=== PATIENT | female | born 1990 | race Caucasian/White ===

== ENCOUNTER 2019-04-10 07:54 | Outpatient (CLI) | payer OTHER, SELFPAY ==
[2019-04-10 08:56] LABS: Eosinophils Percent Auto 0.6 % (0-4.4); Hematocrit 35.6 % (37.0-47.0); Immature Granulocyte Absolute 0.01 K/mm3 (0.00-0.031); Immature Granulocyte Percent A 0.1 % (0-0.5); Lymphocytes Absolute Auto 1.06 K/mm3 (0.9-3.2); Lymphocytes Percent Auto 14.8 % (18.3-44.2); Mean Corpuscular HGB Conc 33.7 g/dl (32-36); Mean Corpuscular Hemoglobin 29.7 pg (26-34); Mean Corpuscular Volume 88.1 fl (80-100); Mean Platelet Volume 10.7 fl (7.4-10.4); Monocytes Absolute Auto 0.4 K/mm3 (0.1-0.6); Neutrophils Absolute Auto 5.7 K/mm3 (1.3-6.7); Neutrophils Percent Auto 79.5 % (45.5-73.1); Platelet Count Result 236 k/mm3 (150-375); Red Blood Count 4.04 M/mm3 (4.2-5.4); Red Cell Distribution Width 13.1 % (11.5-14.5); White Blood Count 7.2 K/mm3 (4.5-10.0)
[2019-04-10 08:59] LABS: Add Urine Microscopic? YES; Appearance Urine Cloudy (Clear); Bacteria Urine Trace /hpf; Bilirubin Urine Negative (Negative); Blood Urine Negative (Negative); Budding Yeast Urine Present /hpf; Color Urine Yellow (Yellow); Glucose Urine UA Negative (Negative); Ketones Urine Negative (Negative); Leukocyte Esterase Ur Negative LEU/UL (NEGATIVE); Mucus Urine Rare /lpf; Nitrate Urine Negative (Negative); Protein Urine Negative (Negative); RBC Urine 0-2 /hpf (0-2); Specific Grav Ur 1.012 (1.001-1.035); Squamous Epithelial Cell Urine Occasional /hpf (Few); Urobilinogen Urine Negative mg/dL (<2.0)
[2019-04-10 09:38] LABS: Vitamin D 25 Hydroxy 44.8 ng/mL
[2019-04-10 09:44] LABS: Thyroid Stimulating Hormone 0.578 uIU/mL (0.465-4.680)
[2019-04-10 12:45] LABS: Hepatitis B Surface Antigen Negative (Negative); Rubella IgG Antibody 11.6 IU/ML
[2019-04-10 12:56] LABS: HIV 1/2 Ab P24 Ag Result Negative (Negative); Hepatitis C Virus Antibody Negative (Negative)
[2019-04-11 10:55] LABS: Rapid Plasma Reagin Non-Reactive (NonReactive)
[2019-04-17 12:03] LABS: Hemoglobin 12.2 g/dL (11.7-15.5); MCH 30.9 pg (27.0-33.0); MCV 91.2 FL (80.0-100.0); RDW 14.3 % (11.0-15.0); Red Blood Cell Count 3.95 Mill/uL (3.80-5.10)
== END 2019-04-10 07:55 | disposition home or self-care (01) ==
PROVIDERS: PCP Internal Medicine; Visit Provider Student in an Organized Health Care Education/Training Program
DX: Z34.90 Encounter for supervision of normal pregnancy, unspecified, unspecified trimester (principal); Z3A.00 Weeks of gestation of pregnancy not specified
CPT/HCPCS: 36415; 81001; 82306; 83021; 84443; 85025; 86592; 86703; 86762; 86787; 86803; 86900; 86901; 87086; 87340; G0432

== ENCOUNTER 2019-07-12 07:20 | Outpatient (CLI) | payer OTHER, SELFPAY ==
[2019-07-12 08:36] LABS: Basophils Percent Auto 0.2 % (0.2-1.2); Eosinophils Absolute Auto 0.1 K/mm3 (0-0.3); Eosinophils Percent Auto 0.8 % (0-4.4); Hematocrit 34.9 % (37.0-47.0); Hemoglobin 11.6 g/dL (12.0-15.0); Immature Granulocyte Absolute 0.03 K/mm3 (0.00-0.031); Immature Granulocyte Percent A 0.5 % (0-0.5); Lymphocytes Absolute Auto 1.06 K/mm3 (0.9-3.2); Lymphocytes Percent Auto 16.1 % (18.3-44.2); Mean Corpuscular HGB Conc 33.2 g/dl (32-36); Mean Corpuscular Hemoglobin 30.9 pg (26-34); Mean Corpuscular Volume 93.1 fl (80-100); Mean Platelet Volume 10.6 fl (7.4-10.4); Monocytes Absolute Auto 0.4 K/mm3 (0.1-0.6); Monocytes Percent Auto 6.1 % (2.6-8.5); Neutrophils Absolute Auto 5.1 K/mm3 (1.3-6.7); Neutrophils Percent Auto 76.3 % (45.5-73.1); Platelet Count Result 175 k/mm3 (150-375); Red Blood Count 3.75 M/mm3 (4.2-5.4); White Blood Count 6.6 K/mm3 (4.5-10.0)
[2019-07-12 08:51] LABS: Glucose 1 Hour PP 50gm Dose 125 mg/dL
== END 2019-07-12 07:21 | disposition home or self-care (01) ==
PROVIDERS: PCP Internal Medicine; Visit Provider Student in an Organized Health Care Education/Training Program
DX: Z34.82 Encounter for supervision of other normal pregnancy, second trimester (principal)
CPT/HCPCS: 36415; 82947; 85025

== ENCOUNTER 2019-09-12 15:40 | Outpatient (CLI) | payer OTHER, SELFPAY ==
[2019-09-12 15:59] LABS: Basophils Percent Auto 0.1 % (0.2-1.2); Eosinophils Percent Auto 0.5 % (0-4.4); Hematocrit 37.1 % (37.0-47.0); Hemoglobin 12.8 g/dL (12.0-15.0); Immature Granulocyte Absolute 0.02 K/mm3 (0.00-0.031); Immature Granulocyte Percent A 0.2 % (0-0.5); Lymphocytes Absolute Auto 1.49 K/mm3 (0.9-3.2); Lymphocytes Percent Auto 18.3 % (18.3-44.2); Mean Corpuscular HGB Conc 34.5 g/dl (32-36); Mean Corpuscular Hemoglobin 31.4 pg (26-34); Mean Corpuscular Volume 90.9 fl (80-100); Monocytes Absolute Auto 0.6 K/mm3 (0.1-0.6); Monocytes Percent Auto 7.5 % (2.6-8.5); Neutrophils Percent Auto 73.4 % (45.5-73.1); Platelet Count Result 144 k/mm3 (150-375); Red Blood Count 4.08 M/mm3 (4.2-5.4); Red Cell Distribution Width 13.7 % (11.5-14.5); White Blood Count 8.2 K/mm3 (4.5-10.0)
[2019-09-12 16:53] LABS: HIV 1/2 Ab P24 Ag Result Negative (Negative)
[2019-09-13 10:21] LABS: Rapid Plasma Reagin Non-Reactive (NonReactive)
== END 2019-09-12 15:41 | disposition home or self-care (01) ==
PROVIDERS: PCP Internal Medicine; Visit Provider Student in an Organized Health Care Education/Training Program
DX: Z34.90 Encounter for supervision of normal pregnancy, unspecified, unspecified trimester (principal); Z3A.00 Weeks of gestation of pregnancy not specified
CPT/HCPCS: 36415; 85025; 86592; 86703; G0432

== ENCOUNTER 2019-09-25 16:37 | Outpatient (CLI) | payer OTHER, SELFPAY | END 2019-09-25 16:38 | disposition home or self-care (01) | PROVIDERS: PCP Internal Medicine; Visit Provider Student in an Organized Health Care Education/Training Program | DX: Z34.90 Encounter for supervision of normal pregnancy, unspecified, unspecified trimester (principal); Z3A.00 Weeks of gestation of pregnancy not specified | CPT/HCPCS: 36415; 86850 ==

== ENCOUNTER 2019-10-04 10:29 | Outpatient (RCR) | payer OTHER, SELFPAY ==
[2019-07-12 10:12] VITALS: BP 105/64; PULSE 89
--- NOTE | ~2019-10-04 | US_ITS ---
EXAMINATION: US OB limited w BPP DATE: 10/04/2019 11:21 INDICATION: Term . TECHNIQUE: Real-time pelvic ultrasound was performed. COMPARISON: Ultrasound 02/19/2019 FINDINGS: There is a single living fetus in vertex presentation. The placenta is anterior and fundal. he art rate is 136 beats per minute (bpm). The amniotic fluid index is 14.5 cm, which is normal. Biophysical profile performed by the technologist: breathing (30 sec sustained breathing in 30 minutes): 2 out of 2 movement (3 gross body movements in 30 minutes): 2 out of 2 tone (one episode of ssofqbf-zmlpvzwub-arfhagu limb movement): 2 out of 2 Amniotic fluid pocket (2 cm): 2 out of 2 Total score: 8 out of 8 IMPRESSION: 1. Single living fetus in vertex presentation. 2. Biophysical profile 8 out of 8. Reviewed, dictated and finalized at location B.
[2019-10-04 12:04] VITALS: BP 115/79; PULSE 86
== END 2019-10-08 08:13 | disposition home or self-care (01) ==
LOC: ANHOBOP 10:29
PROVIDERS: PCP Internal Medicine; Visit Provider Student in an Organized Health Care Education/Training Program
DX: Z34.92 Encounter for supervision of normal pregnancy, unspecified, second trimester (principal); Z3A.28 28 weeks gestation of pregnancy; Z3A.40 40 weeks gestation of pregnancy
CPT/HCPCS: 59025; 76815; 76819

== ENCOUNTER 2019-10-06 20:21 | Inpatient (IN) | payer OTHER, SELFPAY ==
[2019-10-06 20:32] VITALS: TEMP 36.6
[2019-10-06 20:54] VITALS: BP 124/78; PULSE 77
[2019-10-06 21:00] VITALS: BMI 30.4
[2019-10-06] MEDS: AMPICILLIN 2 GM/NS 100 ML 2 GM/100 ML BAG IVPB (21:14)
[2019-10-06] MEDS: OXYTOCIN 30 UNITS/NS 500 ML 30 UNITS/500 ML BAG IV CONT (21:14)
[2019-10-06] MEDS: LACTATED RINGERS 1,000 ML 125 ML IV CONT (21:14)
[2019-10-06 21:26] LABS: Eosinophils Absolute Auto 0.1 K/mm3 (0-0.3); Eosinophils Percent Auto 0.7 % (0-4.4); Hematocrit 37.1 % (37.0-47.0); Hemoglobin 12.8 g/dL (12.0-15.0); Immature Granulocyte Absolute 0.02 K/mm3 (0.00-0.031); Immature Granulocyte Percent A 0.2 % (0-0.5); Lymphocytes Absolute Auto 1.82 K/mm3 (0.9-3.2); Lymphocytes Percent Auto 20.1 % (18.3-44.2); Mean Corpuscular HGB Conc 34.5 g/dl (32-36); Mean Corpuscular Hemoglobin 31.2 pg (26-34); Mean Corpuscular Volume 90.5 fl (80-100); Mean Platelet Volume 12.3 fl (7.4-10.4); Monocytes Absolute Auto 0.7 K/mm3 (0.1-0.6); Neutrophils Absolute Auto 6.4 K/mm3 (1.3-6.7); Platelet Count Result 153 k/mm3 (150-375); Red Cell Distribution Width 13.7 % (11.5-14.5)
--- NOTE | 2019-10-06 21:28 | LDADM ---
This patient, Nae Szymanski, was admitted to Labor/Delivery/Recovery 104 on 10/06/19 at 20:21. Plans for labor, pain management and were discussed with patient. Patient/family oriented to hospital policies and general routines including ID bracelet, bed and alarms, visiting hours, pain management, procedures, bathroom and other care routines, personal items, smoking policy, room service/diet and guest tray routines, infant security routines, and visiting hours. Patient/Family are encouraged to report perceived risks to care and to ask questions if they do not understand what they are told or what they should do. See OBIX for further documentation.
[2019-10-06 21:31] VITALS: BP 119/69; PULSE 78
[2019-10-06 22:01] VITALS: BP 114/65; PULSE 81
[2019-10-06 22:31] VITALS: BP 122/68; PULSE 68
[2019-10-07] VITALS (140 sets, daily range): BP systolic 74–152; BP diastolic 35–122; PULSE 61–202; RESP 16; TEMP 36.2–37.4; O2SAT 95–100
[2019-10-07] MEDS: AMPICILLIN 1 GM/NS 50 ML 1 GM/50 ML BAG IVPB ×3 (01:15→09:30)
--- NOTE | 2019-10-07 07:13 | WPDANESEPP ---
Anes - Eval Pre Procedure Procedure: labor epidural Date/Time: 10/07/19 07:13 Surgeon: amisha Pre Op Diagnosis: Leaking Patient Data Age: 29 Gender: F Height: 1.65 m Weight: 83 kg Last Vital Signs Temp 36.6 C 10/07/19 06:00 Pulse 61 10/07/19 04:31 BP 117/71 10/07/19 04:31 Allergies Allergy/AdvReac Type Severity Reaction Status Date / Time No Known Allergies Allergy Unknown Verified 10/02/19 10:11 Home Medications Medication Instructions Recorded Confirmed Type cetirizine 10 mg capsule 10 mg PO DAILY 02/15/19 10/06/19 History [id number]-jbvq carb,eiz-UV-uff-dha 1 pkg PO DAILY 10/04/19 10/06/19 History Laboratory Tests 10/06/19 10/06/19 10/06/19 21:04 21:04 21:04 WBC 9.0 K/mm3 K/mm3 (4.5-10.0) RBC 4.10 M/mm3 L M/mm3 (4.2-5.4) Hgb 12.8 g/dL g/dL (12.0-15.0) Hct 37.1 % % (37.0-47.0) MCV 90.5 fl fl (80-100) MCH 31.2 pg pg (26-34) MCHC 34.5 g/dl g/dl (32-36) RDW 13.7 % % (11.5-14.5) Plt Count 153 k/mm3 k/mm3 (150-375) MPV 12.3 fl H fl (7.4-10.4) Immature Gran % (Auto) 0.2 % % (0-0.5) Neut % (Auto) 71.0 % % (45.5-73.1) Lymph % (Auto) 20.1 % % (18.3-44.2) [place] % (Auto) 8.0 % % (2.6-8.5) Eos % (Auto) 0.7 % % (0-4.4) Baso % (Auto) 0.0 % L % (0.2-1.2) Lymph # (Auto) 1.82 K/mm3 K/mm3 (0.9-3.2) [place] # (Auto) 0.7 K/mm3 H K/mm3 (0.1-0.6) Eos # (Auto) 0.1 K/mm3 K/mm3 (0-0.3) Baso # (Auto) 0.0 K/mm3 K/mm3 (0.0-0.1) Abs Immat Gran (auto) 0.02 K/mm3 K/mm3 (0.00-0.031) Absolute Neuts (auto) 6.4 K/mm3 K/mm3 (1.3-6.7) Absolute Nucleated RBC 0.0 K/mm3 K/mm3 (0.0-0.012) Nucleated RBC % 0.0 % % (0.0-0.2) RPR Pending Blood Type B Positive Antibody Screen Negative Patient hx anesthesia problems: none Family hx anesthesia problems: none PMFSH Social History Social History Smoking status: Never smoker Second hand tobacco smoke exposure: No Alcohol intake: never Substance use: never Spiritual care concerns: No Exam Day of Procedure 10/07/19 07:13
[2019-10-07] MEDS: LACTATED RINGERS 1,000 ML 125 ML IV CONT ×3 (07:17→09:13)
--- NOTE | 2019-10-07 08:14 | PM.IMHP ---
H&P: HPI History of Present Illness Date/Time: 10/07/19 08:14 Chief complaint: Leaking Narrative: Nae Szymanski is a 29 year old female LMP 12/28/18 with ARLYN 10/04/19. Patient is currently 40w3d gestation. She is dated by LMP consistent with US on 02/19/19 at 7w gestation. Patient presented to L&D with complaints of leakage of fluid. Reports trickling of fluid at 1:00 a.m. yesterday morning. Reports occ ctx. Denies any vaginal bleeding. Reports good movement. Review of Systems Review of Systems: All systems reviewed & are unremarkable except as noted in HPI and below Constitutional: Constitutional: Reports as per HPI, Reports no additional constitutional complaints, Denies chills, Denies fever(s), Denies headache(s) and Denies night sweats Eyes: Eyes: Reports as per HPI and Reports no additional eye complaints ENT: Reports system reviewed and no additional complaints, except as documented, Reports as per HPI, Reports Normal hearing present and Denies headache(s) Cardiovascular: Cardiovascular: Reports as per HPI, Reports no additional cardiovascular complaints, Denies chest pain and Denies dyspnea Respiratory: Respiratory: Reports as per HPI, Reports no additional respiratory complaints, Denies cough and Denies dyspnea Gastrointestinal: Gastrointestinal: Reports as per HPI, Reports no additional gastrointestinal complaints, Denies abdominal pain, Denies change in bowel habits, Denies change in stool character, Denies nausea and Denies vomiting Genitourinary: Genitourinary: Reports no additional female genitourinary complaints, Reports as per HPI, Denies abnormal vaginal bleeding, Denies genital lesions, Denies hot flashes, Denies dyspareunia, Denies pelvic pain, Denies sexual dysfunction, Denies urinary incontinence, Denies vaginal discharge, Denies vaginal dryness and Denies vaginal odor Musculoskeletal: Musculoskeletal: Reports no additional musculoskeletal complaints and Reports as per HPI Integumentary/Breasts: Skin/Breast: Reports system reviewed and no additional complaints, except as docu, Reports as per HPI, Denies breast pain and Denies nipple discharge Neurologic: Reports system reviewed and no additional complaints, except as documented, Reports as per HPI, Reports Normal hearing present and Denies headache(s) Psychiatric: Psychiatric: Reports no additional psychiatric complaints, Reports as per HPI, Denies anxiety and Denies depression Endocrine: Endocrine: Reports no additional endocrine complaints and Reports as per HPI Hematologic/Lymphatic: Hematologic/Lymphatic: Reports no additional hematologic/lymphatic complaints and Reports as per HPI Allergic/Immunologic: Allergic/Immunologic: Reports no additional allergic/immunologic complaints and Reports as per HPI [facility] Past Medical History Medical History Spontaneous X2 03/2016, 12/09/2015 Vaginal delivery 02/20/2017 Surgical History Surgical History H/O dilation and curettage 03/2016 Family History Family History Grandparent Hypertension Cerebrovascular accident Family history of lung cancer, Onset Age: 56 Family history of malignant neoplasm of breast High cholesterol Lung cancer Father Hypertension Family history of type 2 diabetes mellitus Mother Hypertension High cholesterol Social History Social History Smoking status: Never smoker Second hand tobacco smoke exposure: No Alcohol intake: never Substance use: never Spiritual care concerns: No Meds Home Medications and Allergies Home Medications Medication Instructions Recorded Confirmed Type cetirizine 10 mg capsule 10 mg PO DAILY 02/15/19 10/06/19 History [id number]-vjgh carb,hss-FU-vfw-dha 1 pkg PO DAILY 10/04/19 10/06/19 History Allerg
[2019-10-07] MEDS: ONDANSETRON INJ 4 MG/2 ML VIAL IV PUSH (09:13)
[2019-10-07] MEDS: miSOPROStol 200 MCG TABLET 1000 MCG (11:59)
[2019-10-07] MEDS: METHYLERGONOVINE MALEATE 0.2 MG/ML VIAL IM (12:04)
[2019-10-07] MEDS: OXYTOCIN 30 UNITS/NS 500 ML 30 UNITS/500 ML BAG 999 UNITS IV CONT (12:14)
[2019-10-07] MEDS: TRANEXAMIC ACID 1,000 MG/10 ML AMPUL 1000 MG IV PUSH (12:15)
--- NOTE | 2019-10-07 12:29 | PM.OBPRVD ---
OB - Delivery Note Procedure Delivery date: 10/07/19 Procedure: Patient is a 29-year-old G4 now P2022 who presented to labor and delivery on the evening of 10/06/2019 at 40w2d. Patient reported leakage of fluid at approximately 1:00 a.m. on 10/06/2019. Rupture of membranes was confirmed upon arrival to labor and delivery. Therefore, she was suspected to be greater than 18 hours ruptured on presentation. Decision was made to admit patient to labor and delivery for induction of labor secondary to PROM. Initial cervical exam was approximately 1.5 cm dilated. Induction of labor was begun with Pitocin. Patient also received Ampicillin for GBS prophylaxis due to prolonged rupture of membranes. Pitocin was titrated throughout the remainder of the evening and morning of 10/07/2019. The patient became increasingly uncomfortable and requested an epidural for pain management which was placed without difficulty. At 8:15 a.m., patient was examined and noted to be 4 cm dilated. A forebag was noted and ruptured. Clear fluid was noted. Pitocin was continuously titrated. Patient, however, made slow progress and contractions spaced out. An IUPC was placed for enhanced monitoring. Shortly afterwards, patient made quick cervical change to fully dilated. She was noted to be fully dilated at 11:21 a.m. Patient was encouraged to push and found to be pushing well. She was prepped and draped for delivery. At 11:51 a.m., head was delivered atraumatically without difficulty in PHAM presentation. Occiput restituted to maternal left side. A nuchal cord x1 was noted and easily reduced. With subsequent push, the infant's neck, shoulders, and rest of body were delivered without difficulty. Terminal meconium was noted. Nose and mouth were suctioned with bulb suction. The infant was placed on maternal abdomen and care was assumed by awaiting nursing staff. Delayed cord clamping was performed for approximately 60 seconds. The cord was clamped and cut. A segment of cord was collected for cord gases. Cord blood was also collected. The placenta was delivered spontaneously and intact. Uterine fundus was noted to be boggy. Vigorous bimanual massage was performed, however, profuse bleeding ensued. A red rubber catheter was used to drain the bladder of approximately 20 cc of clear urine. Inspection of cervix and vagina was performed. No lacerations were noted. Only a superficial posterior vaginal abrasion was noted, however, this area was not bleeding and did not require repair. Cytotec 1000 mcg was administered OR. Uterus was still noted to be boggy. Uterine massage continued. Methergine 0.2 mg x1 dose was given. Uterine atony was persistent. Tranexamic acid 1g was ordered and administered slowly over 10 minutes. During administration of tranexamic acid, uterus became firm and bleeding subsided. Patient was cleansed and dried. Estimated blood loss for entire delivery was 1000 cc due to hemorrhage secondary to uterine atony. The was a live-born female infant, Apgars 8 and 9, weighing 8 lb 3 oz. Both mother and baby doing well after delivery. events: Labor Induction and Premature Rupture of Membrane Intrapartal events: Bleeding ( hemorrhage) Induction method: per pitocin protocol Delivery monitor: external FHT, external uterine and internal uterine Route of delivery: Laceration description: Superficial (posterior vaginal ) Specimen: Yes (cord blood and cord gases) Estimated blood loss (mL): 1,000 Anesthesia type: Epidural Disposition: floor Complications: hemorrhage due to uterine atony [place] Baby Date of : 10/07/19 Time of : 11:51 Weeks of gestation at delivery: 40 (40.3) Infant gender: Female Weight (pounds): 8 Weight (ounces): 3 presentation: vertex position: Left Occiput Anterior Placenta delivery description: Spontaneous cord vessel description: 3 Vessels, Nuchal Cord (x1) and Clamped/Cut score one minute: 8
[2019-10-07] MEDS: OXYTOCIN 30 UNITS/NS 500 ML 30 UNITS/500 ML BAG 125 UNITS IV CONT (12:45)
--- NOTE | 2019-10-07 15:36 | OBPPTRN ---
1454 Patient transferred to room #283 via W/C. Support person present. Oriented to unit, room, information board, rooming in, admission packet and security measures. Patient verbalizes understanding.
[2019-10-07] MEDS: IBUPROFEN 600 MG TABLET PO (19:11)
[2019-10-08] MEDS: IBUPROFEN 600 MG TABLET PO (05:07)
[2019-10-08] MEDS: DOCUSATE SODIUM 100 MG CAPSULE PO (05:08)
[2019-10-08 05:10] LABS: Hematocrit 31.2 % (37.0-47.0); Hemoglobin 10.6 g/dL (12.0-15.0)
--- NOTE | 2019-10-08 07:24 | WPDANLDNPN2 ---
Anes-Prog Note L&D-Neuraxial Date/Time: 10/08/19 07:24 Neuraxial medications: epidural PF morphine Opiod-related complaints: none Patient feedback: Patient satisfied with post-operative pain management.
--- NOTE | 2019-10-08 07:24 | WPDANLDPN2 ---
Anes-Prog Note L&D Date/Time: 10/08/19 07:24 Comfortable throughout: labor, delivery and section Neuraxial method: epidural Epidural/Spinal procedure site: clean & non-tender Neuro status: Neuro function grossly intact. Cardiovascular status: normal Respiratory status: normal Airway patency: baseline Mental status: baseline Post-Op hydration status: normal Vital Signs: Last Vital Signs Temp 37.4 C 10/07/19 20:00 Pulse 73 10/07/19 20:00 Resp 16 10/07/19 20:00 BP 106/57 L 10/07/19 20:00 Pulse Ox 96 10/07/19 20:00 I/O: Intake & Output 10/07/19 10/07/19 10/08/19 15:59 23:59 07:59 Intake Total 4050 Output Total 88 Balance 3962 Post-procedural complaints: other (mild back tenderness-improving ) Patient feedback: Patient satisfied with anesthetic care.
[2019-10-08 08:00] VITALS: BP 114/75; PULSE 75; RESP 16; TEMP 36.4; O2SAT 95
[2019-10-08] MEDS: MULTIVIT/MIN/PREN/FOL AC/IRON TABLET 1 TAB PO (08:28)
--- NOTE | 2019-10-08 10:51 | P.PNOB_ITS ---
OB - PN: Subj Subjective Date/time seen: 10/08/19 10:51 Pt doing well this AM. Denies any headache, chest pain, SOB, N/V. Minimal lochia. Ambulating without difficulty. Voiding well. Still with mild-moderate edema. Baby well. OB - PN: Obj Data Labs CBC & Chem 7: 10/08/19 05:02 Labs: Laboratory Results - last 24 hr 10/08/19 05:02 Hgb 10.6 L Hct 31.2 L OB - PN A/P Assessment and Plan (1) Normal spontaneous vaginal delivery: Code(s): O80 - Encounter for full-term uncomplicated delivery Status: Acute Assessment and Plan: doing well continue routine care anticipate dc home tomorrow (2) hemorrhage: Code(s): O72.1 - Other immediate hemorrhage Status: Acute Assessment and Plan: s/p PPH EBL 1000cc pt doing well asymptomatic vital signs within normal limits Hgb 10.6 this AM Time Spent With Patient Time: Total time spent is greater than 50% in coordination of care (as documented) at patient's floor/unit and/or counseling patient: Exam Const: General: comfortable and no acute distress GI: GI Palp: Yes Soft to palpation and No Tenderness to palpation present (GI) Other: fundus firm below umbilicus Extrem: Right lower extremity: edema (1-2+) Left lower extremity: edema (1- 2+)
[2019-10-08 11:33] LABS: Rapid Plasma Reagin Non-Reactive (NonReactive)
--- NOTE | 2019-10-08 12:30 | PC.NURSE ---
Mother called out for assessment of feeding, reporting tenderness during entire feeding. Mother has infant latched shallow in cradle positioning. Reviewed feeding cues, frequencies, duration of feedings, feeding elimination flow sheet, and signs of adequate intake. Demonstrated stimulation techniques to wake for feeding. Assisted with infant to breast. Reviewed positioning/alignment in cross cradle, holding breast in U hold and guided asymmetrical latch on. Discussed rational for each. was able to latch correctly. Infant nursed eagerly, with steady draws and frequent swallowing noted. Reviewed signs of a correct latch, effective nursing and suck swallow ratio. Mother reported she could feel was latched more deeply and had no discomfort. Infant was able to maintain latch without discomfort to mother. Nipple care reviewed. Instructed mother to call out for RN assistance if she is unable to latch infant for feeding or she has discomfort with nursing. Instructed feeding should be initiated three hours from start of last feeding or if feeding cues are noted before. Mother voiced understanding of information shared.
[2019-10-08 21:10] VITALS: BP 117/55; PULSE 72; RESP 16; TEMP 36.7; O2SAT 97
[2019-10-08] MEDS: ACETAMINOPHEN 325 MG TABLET 650 MG PO (21:14)
--- NOTE | 2019-10-09 08:00 | PM.OBPNVD ---
OB - PN: Subj Subjective Date/time seen: 10/09/19 08:00 Pt doing well. Minimal lochia. Denies any headache, chest pain, SOB, N/V. Ambulating well. Voiding without difficulty. OB - PN: Obj Data Labs CBC & Chem 7: 10/08/19 05:02 Labs: Laboratory Results - last 24 hr 10/06/19 21:04 RPR Non-reactive OB - PN A/P Assessment and Plan (1) Normal spontaneous vaginal delivery: Code(s): O80 - Encounter for full-term uncomplicated delivery Status: Acute Assessment and Plan: doing well continue routine care discharge home in stable condition today f/u in 4-6 weeks emergency precautions reviewed Time Spent With Patient Time: Total time spent is greater than 50% in coordination of care (as documented) at patient's floor/unit and/or counseling patient: Exam Const: General: comfortable and no acute distress GI: GI Palp: Yes Soft to palpation and No Tenderness to palpation present (GI) Other: fundus below umbilicus Extrem: Right lower extremity: edema (trace) Left lower extremity: edema (trace) Other: no calf tenderness
--- NOTE | 2019-10-09 08:04 | PM.OBDSVD ---
DS: Admitting Diagnosis Admitting Diagnosis Admitting Diagnosis: PROM OB - DS: Summary OB Procedures : None OB Procedures Intrapartum: Spontaneous Vag Delivery OB Procedures: : None Time Spent with Patient Time attestation: Total time spent providing and/or coordinating discharge services: DS: Data Data Completed and Pending Labs on day of discharge: Labs from last 24 hours 10/06/19 21:04 RPR Non-reactive Discharge Plan Discharge Attending physician on discharge: Miranda Prince Discharging Clinician: Miranda Prince Anticipated Discharge Date/Time: 10/09/19 08:04 Patient Disposition: Home, Self-Care Activity: as tolerated and pelvic rest Diet: regular Discharge Instructions: Call office ([phone]) to schedule a visit in 4-6 weeks. You may take Ibuprofen 600mg every 6 hours as needed for pain. Pain medication may make you constipated. It may be helpful to take an kdbx-xmt-lrzsnvk stool softener, such as Colace and/or Senokot, along with the pain medication to help lessen constipation. Call office or go to ED for pain not controlled with medication, headache, chest pain, shortness of breath, fever, chills, persistent nausea or vomiting, severe abdominal pain, heavy vaginal bleeding >2 pads/hour, foul vaginal discharge or odor, or problems with your breasts. Education: Mom and Baby Guide Given to: Mother Follow-Up: Call your delivering provider's office for an appointment to be seen in: 4 Weeks Mom and baby should come to the [facility] for the follow-up appointment. Appointment Date/Time: October 10, 2019 at 10:00 am What to expect at your follow-up visit: Physical Assessment Call [phone] if you are unable to keep your appointment time. BREAST CARE: * Wear a snug supportive bra. * For engorgement discomfort: Breast Feeding: * Apply warm moist washcloths * Express milk as needed to relieve engorgement * Wear loose clothing * For sore nipples: * Identify correct latch-on * Apply warm moist washcloths before and after nursing * Air dry nipples after nursing * May apply Lansinoh cream to nipples EPISIOTOMY/PERINEAL CARE: * Until bleeding stops, use your belia bottle after urinating * Change your pad frequently throughout the day * No tub baths until seen by your physician - You may shower ACTIVITY: * Rest as much as possible. * Do not exercise or lift anything heavier than your baby (such as laundry or other children.) * Avoid stairs or driving as much as possible. * Do not put anything into the vagina. No douching, tampons, or sexual activity until seen by physician. NOTIFY PHYSICIAN IF YOU HAVE ANY QUESTIONS OR IF ANY OF THE FOLLOWING SYMPTOMS OCCUR: * If your perineum becomes red, swollen, or more painful than what you have experienced in the hospital. * If your vaginal bleeding becomes foul smelling. * If your vaginal bleeding becomes more heavy than a period or if your bleeding changes from pink to bright red. However, you may pass an occasional walnut-sized clot once or twice for the first week . * If you experience a sharp, shooting pain in you calves. * If you discover a hard, reddened area on your breast or if you experience flu-like symptoms. DIET: * Eat regular, well-balanced meals. * Drink plenty of fluids daily. If , drink to thirst. Stand Alone Forms: General Discharge Information Follow-up/Referrals: Miranda Prince MD [Physician] - Discharge Medications: Continued Zyrtec 10 mg capsule 10 mg PO DAILY RF: 0 [id number]-uidh carb,ktf-SY-lyt-dha 35 mg iron-1 mg -50 mg-300 mg combo pack 1 pkg PO DAILY RF: 0 Date of admission: 10/06/19 20:21 Primary Care Provider: Mele Dsouza Admitting Provider: Miranda Prince Discharge Date/Time: 10/09/19 13:08 Attending physician o
[2019-10-09 08:15] VITALS: BP 113/65; PULSE 71; RESP 18; TEMP 37.2; O2SAT 97
[2019-10-09] MEDS: DOCUSATE SODIUM 100 MG CAPSULE PO (08:20)
[2019-10-09] MEDS: MULTIVIT/MIN/PREN/FOL AC/IRON TABLET 1 TAB PO (08:21)
--- NOTE | 2019-10-09 11:15 | PC.NURSE ---
Patient viewed the discharge video Mother & Baby Care, The First Two Weeks . Patient was given the opportunity and encouraged to ask questions. Patient verbalized understanding of information shared and has been given the mother/baby guide for home reference.
[2019-10-10 10:08] VITALS: BP 113/76; PULSE 97; RESP 20; TEMP 36.9; O2SAT 98
== END 2019-10-09 13:08 | disposition home or self-care (01) | DRG 806 ==
LOC: ANHLDR 21:03 → ANHOB2 10-07 14:58
PROVIDERS: Admitting Provider Student in an Organized Health Care Education/Training Program; PCP Internal Medicine; Visit Provider Student in an Organized Health Care Education/Training Program
DX: O42.02 Full-term premature rupture of membranes, onset of labor within 24 hours of rupture (principal); O72.1 Other immediate postpartum hemorrhage; Z37.0 Single live birth; Z3A.40 40 weeks gestation of pregnancy; O69.81X0 Labor and delivery complicated by cord around neck, without compression, not applicable or unspecified; Z23 Encounter for immunization
CPT/HCPCS: 36415; 84112; 85014; 85018; 85025; 86592; 86850; 86900; 86901; 90471; 90686; A9270; G0008; J0290; J2210; J2405; J2590; J2795; J7120

== ENCOUNTER → 2020-04-17 14:03 | Outpatient (REF) | payer OTHER, SELFPAY | LOC: ANHLAB 14:03 | PROVIDERS: PCP Internal Medicine; Visit Provider Nurse Practitioner | DX: D22.5 Melanocytic nevi of trunk (principal) | CPT/HCPCS: 88305; 88342 ==

== ENCOUNTER 2020-12-04 12:59 | Outpatient (CLI) | payer OTHER, SELFPAY ==
[2020-12-04 13:47] LABS: Basophils Percent Auto 0.2 % (0.2-1.2); Eosinophils Percent Auto 0.4 % (0-4.4); Hematocrit 35.7 % (37.0-47.0); Hemoglobin 12.2 g/dL (12.0-15.0); Immature Granulocyte Absolute 0.02 K/mm3 (0.00-0.031); Immature Granulocyte Percent A 0.2 % (0-0.5); Lymphocytes Absolute Auto 1.07 K/mm3 (0.9-3.2); Lymphocytes Percent Auto 10.4 % (18.3-44.2); Mean Corpuscular HGB Conc 34.2 g/dl (32-36); Mean Corpuscular Hemoglobin 30.6 pg (26-34); Mean Corpuscular Volume 89.5 fl (80-100); Mean Platelet Volume 10.9 fl (7.4-10.4); Monocytes Absolute Auto 0.5 K/mm3 (0.1-0.6); Monocytes Percent Auto 4.4 % (2.6-8.5); Neutrophils Absolute Auto 8.7 K/mm3 (1.3-6.7); Neutrophils Percent Auto 84.4 % (45.5-73.1); Platelet Count Result 226 k/mm3 (150-375); Red Blood Count 3.99 M/mm3 (4.2-5.4); Red Cell Distribution Width 13.5 % (11.5-14.5); White Blood Count 10.3 K/mm3 (4.5-10.0)
[2020-12-04 14:17] LABS: Vitamin D 25 Hydroxy 41.8 ng/mL
[2020-12-04 14:31] LABS: Thyroid Stimulating Hormone 0.726 uIU/mL (0.465-4.680)
[2020-12-04 14:40] LABS: HIV 1/2 Ab P24 Ag Result Negative (Negative)
[2020-12-04 14:52] LABS: Hepatitis C Virus Antibody Negative (Negative)
[2020-12-04 14:54] LABS: Hepatitis B Surface Antigen Negative (Negative); Rubella IgG Antibody 8.6 IU/ML
[2020-12-06 15:38] LABS: Rapid Plasma Reagin Non-Reactive (NonReactive)
== END 2020-12-04 13:00 | disposition home or self-care (01) ==
LOC: ANHLAB 13:00
PROVIDERS: PCP Internal Medicine; Visit Provider Student in an Organized Health Care Education/Training Program
DX: Z34.90 Encounter for supervision of normal pregnancy, unspecified, unspecified trimester (principal); Z3A.00 Weeks of gestation of pregnancy not specified
CPT/HCPCS: 36415; 82306; 84443; 85025; 86592; 86703; 86762; 86787; 86803; 86850; 86900; 86901; 87340; G0432

== ENCOUNTER 2021-03-10 07:23 | Outpatient (CLI) | payer OTHER, SELFPAY ==
[2021-03-10 08:59] LABS: Basophils Percent Auto 0.1 % (0.2-1.2); Eosinophils Absolute Auto 0.1 K/mm3 (0-0.3); Eosinophils Percent Auto 0.6 % (0-4.4); Hematocrit 35.2 % (37.0-47.0); Hemoglobin 11.8 g/dL (12.0-15.0); Immature Granulocyte Absolute 0.04 K/mm3 (0.00-0.031); Immature Granulocyte Percent A 0.5 % (0-0.5); Lymphocytes Absolute Auto 1.29 K/mm3 (0.9-3.2); Lymphocytes Percent Auto 15.6 % (18.3-44.2); Mean Corpuscular HGB Conc 33.5 g/dl (32-36); Mean Corpuscular Hemoglobin 30.8 pg (26-34); Mean Corpuscular Volume 91.9 fl (80-100); Mean Platelet Volume 10.9 fl (7.4-10.4); Monocytes Absolute Auto 0.5 K/mm3 (0.1-0.6); Monocytes Percent Auto 5.4 % (2.6-8.5); Neutrophils Absolute Auto 6.4 K/mm3 (1.3-6.7); Neutrophils Percent Auto 77.8 % (45.5-73.1); Platelet Count Result 176 k/mm3 (150-375); Red Blood Count 3.83 M/mm3 (4.2-5.4); Red Cell Distribution Width 13.8 % (11.5-14.5); White Blood Count 8.3 K/mm3 (4.5-10.0)
[2021-03-10 09:07] LABS: Glucose 1 Hour PP 50gm Dose 105 mg/dL
== END 2021-03-10 07:24 | disposition home or self-care (01) ==
LOC: ANHLAB 07:24
PROVIDERS: PCP Internal Medicine; Visit Provider Student in an Organized Health Care Education/Training Program
DX: Z34.90 Encounter for supervision of normal pregnancy, unspecified, unspecified trimester (principal)
CPT/HCPCS: 36415; 82947; 85025

== ENCOUNTER 2021-05-02 07:03 | Outpatient (CLI) | payer OTHER, SELFPAY ==
[2021-05-02 07:36] LABS: Basophils Percent Auto 0.1 % (0.2-1.2); Eosinophils Absolute Auto 0.1 K/mm3 (0-0.3); Eosinophils Percent Auto 0.8 % (0-4.4); Hematocrit 34.4 % (37.0-47.0); Hemoglobin 11.4 g/dL (12.0-15.0); Immature Granulocyte Absolute 0.03 K/mm3 (0.00-0.031); Immature Granulocyte Percent A 0.4 % (0-0.5); Lymphocytes Absolute Auto 1.66 K/mm3 (0.9-3.2); Lymphocytes Percent Auto 21.2 % (18.3-44.2); Mean Corpuscular HGB Conc 33.1 g/dl (32-36); Mean Corpuscular Hemoglobin 30.6 pg (26-34); Mean Corpuscular Volume 92.5 fl (80-100); Mean Platelet Volume 11.2 fl (7.4-10.4); Monocytes Absolute Auto 0.7 K/mm3 (0.1-0.6); Monocytes Percent Auto 8.7 % (2.6-8.5); Neutrophils Absolute Auto 5.4 K/mm3 (1.3-6.7); Neutrophils Percent Auto 68.8 % (45.5-73.1); Platelet Count Result 180 k/mm3 (150-375); Red Blood Count 3.72 M/mm3 (4.2-5.4); Red Cell Distribution Width 13.4 % (11.5-14.5); White Blood Count 7.8 K/mm3 (4.5-10.0)
[2021-05-02 08:25] LABS: HIV 1/2 Ab P24 Ag Result Negative (Negative)
[2021-05-04 13:00] LABS: Rapid Plasma Reagin Non-Reactive (NonReactive)
== END 2021-05-02 07:04 | disposition home or self-care (01) ==
LOC: ANHLAB 07:05
PROVIDERS: PCP Internal Medicine; Visit Provider Student in an Organized Health Care Education/Training Program
DX: Z34.90 Encounter for supervision of normal pregnancy, unspecified, unspecified trimester (principal); Z3A.00 Weeks of gestation of pregnancy not specified
CPT/HCPCS: 36415; 85025; 86592; 86703; G0432

== ENCOUNTER 2021-06-12 07:34 | Outpatient (RCR) | payer OTHER, SELFPAY ==
--- NOTE | ~2021-06-12 | US_ITS ---
EXAMINATION: US OB limited w BPP DATE: 06/12/2021 10:06 INDICATION: Post dates, third trimester TECHNIQUE: Real-time pelvic ultrasound was performed. The interpreting radiologist was not present fo r the study. COMPARISON: None. FINDINGS: There is a single living fetus in vertex presentation. The placenta is fundal. heart rate is 12 9 beats per minute (bpm). The amniotic fluid index is 11.2 cm which is normal (normal range: 7.1 cm t o 21.4 cm). Biophysical profile performed by the technologist: breathing (30 sec sustained breathing in 30 minutes): 2 out of 2 movement (3 gross body movements in 30 minutes): 2 out of 2 tone (one episode of bnlecik-eojkixuju-iskyvgu limb movement): 2 out of 2 Amniotic fluid pocket (2 cm): 2 out of 2 Total score: 8 out of 8 IMPRESSION: 1. Single living fetus in vertex presentation. 2. Biophysical profile 8 out of 8. 3. Normal amniotic fluid index. Reviewed, dictated and finalized at location B.
[2021-06-12 10:20] VITALS: BP 111/66; PULSE 95
== END 2021-07-17 10:15 | disposition home or self-care (01) ==
LOC: ANHOBOP 07:34
PROVIDERS: PCP Internal Medicine; Visit Provider Student in an Organized Health Care Education/Training Program
DX: O48.0 Post-term pregnancy (principal); Z3A.40 40 weeks gestation of pregnancy
CPT/HCPCS: 59025; 76815; 76819

== ENCOUNTER 2021-06-18 05:08 | Inpatient (IN) | payer OTHER, SELFPAY ==
[2021-06-18] VITALS (174 sets, daily range): BP systolic 71–146; BP diastolic 26–128; PULSE 61–260; RESP 16–17; TEMP 36–36.7; O2SAT 80–100; BMI 31.1
--- NOTE | 2021-06-18 05:30 | LDADM ---
This patient, Nae Szymanski, was admitted to Labor/Delivery/Recovery 104 on 06/18/21 at 05:08. Plans for labor, pain management and were discussed with patient. Patient/family oriented to hospital policies and general routines including ID bracelet, bed and alarms, visiting hours, pain management, procedures, bathroom and other care routines, personal items, smoking policy, room service/diet and guest tray routines, infant security routines, and visiting hours. Patient/Family are encouraged to report perceived risks to care and to ask questions if they do not understand what they are told or what they should do. See OBIX for further documentation.
[2021-06-18 05:47] LABS: Basophils Percent Auto 0.1 % (0.2-1.2); Eosinophils Percent Auto 0.4 % (0-4.4); Hematocrit 35.3 % (37.0-47.0); Hemoglobin 11.6 g/dL (12.0-15.0); Immature Granulocyte Absolute 0.03 K/mm3 (0.00-0.031); Immature Granulocyte Percent A 0.4 % (0-0.5); Lymphocytes Absolute Auto 1.84 K/mm3 (0.9-3.2); Lymphocytes Percent Auto 25.1 % (18.3-44.2); Mean Corpuscular HGB Conc 32.9 g/dl (32-36); Mean Corpuscular Hemoglobin 29.7 pg (26-34); Mean Corpuscular Volume 90.3 fl (80-100); Mean Platelet Volume 11.7 fl (7.4-10.4); Monocytes Absolute Auto 0.5 K/mm3 (0.1-0.6); Monocytes Percent Auto 6.8 % (2.6-8.5); Neutrophils Absolute Auto 4.9 K/mm3 (1.3-6.7); Neutrophils Percent Auto 67.2 % (45.5-73.1); Platelet Count Result 146 k/mm3 (150-375); Red Blood Count 3.91 M/mm3 (4.2-5.4); Red Cell Distribution Width 14.4 % (11.5-14.5); White Blood Count 7.3 K/mm3 (4.5-10.0)
[2021-06-18] MEDS: LACTATED RINGERS 1,000 ML 125 ML IV CONT ×4 (06:00→11:43)
[2021-06-18] MEDS: OXYTOCIN 30 UNITS/NS 500 ML 30 UNITS/500 ML BAG IV CONT (06:04)
--- NOTE | 2021-06-18 09:13 | WPDANESEPP ---
Anes - Eval Pre Procedure Procedure: Labor Epidural Date/Time: 06/18/21 09:13 Surgeon: Suresh Preop Diagnosis: Labor Pain Pre Op Diagnosis: IOL Patient Data Age: 30 Gender: F Height: 1.65 m Weight: 85 kg Last Vital Signs Temp 36.3 C L 06/18/21 08:00 Pulse 72 06/18/21 09:00 Resp 17 06/18/21 06:00 BP 103/63 06/18/21 09:00 Allergies Allergy/AdvReac Type Severity Reaction Status Date / Time No Known Allergies Allergy Unknown Verified 06/16/21 09:53 Home Medications Medication Instructions Recorded Confirmed Type cetirizine 10 mg capsule 10 mg PO DAILY PRN 12/04/20 06/18/21 History prenat.vits,howard,gnj-lirg-fupdu 1 tablet PO HS 06/02/21 06/02/21 History [ #2] Laboratory Tests 06/18/21 06/18/21 06/18/21 05:28 05:28 05:28 WBC 7.3 K/mm3 K/mm3 (4.5-10.0) RBC 3.91 M/mm3 L M/mm3 (4.2-5.4) Hgb 11.6 g/dL L g/dL (12.0-15.0) Hct 35.3 % L % (37.0-47.0) MCV 90.3 fl fl (80-100) MCH 29.7 pg pg (26-34) MCHC 32.9 g/dl g/dl (32-36) RDW 14.4 % % (11.5-14.5) Plt Count 146 k/mm3 L k/mm3 (150-375) MPV 11.7 fl H fl (7.4-10.4) Immature Gran % (Auto) 0.4 % % (0-0.5) Neut % (Auto) 67.2 % % (45.5-73.1) Lymph % (Auto) 25.1 % % (18.3-44.2) Orange % (Auto) 6.8 % % (2.6-8.5) Eos % (Auto) 0.4 % % (0-4.4) Baso % (Auto) 0.1 % L % (0.2-1.2) Lymph # (Auto) 1.84 K/mm3 K/mm3 (0.9-3.2) Orange # (Auto) 0.5 K/mm3 K/mm3 (0.1-0.6) Eos # (Auto) 0.0 K/mm3 K/mm3 (0-0.3) Baso # (Auto) 0.0 K/mm3 K/mm3 (0.0-0.1) Abs Immat Gran (auto) 0.03 K/mm3 K/mm3 (0.00-0.031) Absolute Neuts (auto) 4.9 K/mm3 K/mm3 (1.3-6.7) Absolute Nucleated RBC 0.0 K/mm3 K/mm3 (0.0-0.012) Nucleated RBC % 0.0 % % (0.0-0.2) RPR Pending Blood Type B Positive Antibody Screen Negative : gestational age () Patient hx anesthesia problems: none Family hx anesthesia problems: none Results Review: All pre-operative results and documents have been reviewed as part of the pre-operative evaluation. [facility] Past Medical History Medical History Spontaneous X2 03/2016, 12/09/2015 Vaginal delivery 02/20/2017 Surgical History Surgical History H/O dilation and curettage 03/2016 Family History Family History Grandparent Hypertension Cerebrovascular accident Family history of lung cancer, Onset Age: 56 Family history of malignant neoplasm of breast High cholesterol Lung cancer Father Hypertension Family history of type 2 diabetes mellitus Mother Hypertension High cholesterol Social History Social History Smoking status: Never smoker Second hand tobacco smoke exposure: No Alcohol intake: never Substance use: never Spiritual care concerns: No Exam Day of Procedure 06/18/21 09:13 Patient weight: normal Heart: regular rate and rhythm Lungs: normal air movement Airway: Mallampati scale class II Neurological: alert and oriented
[2021-06-18] MEDS: PHENYLEPHRINE 1,000 MCG/10 ML SYRINGE 100 MCG IV PUSH ×4 (09:57→10:47)
[2021-06-18] MEDS: ePHEDrine sulfate INJ 50 MG/ML AMPUL IV PUSH ×3 (10:58→11:14)
--- NOTE | 2021-06-18 11:25 | PM.IMHP ---
H&P: HPI History of Present Illness Date/Time: 06/18/21 11:25 Patient is a 30-year-old 022 LMP 09/05/2020 currently 40 weeks 6 days gestation with ARLYN 06/12/2021 who presented to labor and delivery for elective induction of labor. Patient is dated by LMP consistent with ultrasound on 11/14/2020 at 9 weeks gestation. In general patient doing well. Reports occasional contractions. Denies any vaginal bleeding or leakage of fluid. Reports good movement. Chief Complaint: Intrauterine at 40w6d gestation Elective induction of labor Review of Systems Review of Systems: All systems reviewed & are unremarkable except as noted in HPI and below Constitutional: Constitutional: Reports as per HPI, Reports no additional constitutional complaints, Denies chills, Denies fever(s), Denies headache(s) and Denies night sweats Eyes: Eyes: Reports as per HPI and Reports no additional eye complaints ENT: Reports system reviewed and no additional complaints, except as documented, Reports as per HPI, Reports Normal hearing present and Denies headache(s) Cardiovascular: Cardiovascular: Reports as per HPI, Reports no additional cardiovascular complaints, Denies chest pain and Denies dyspnea Respiratory: Respiratory: Reports as per HPI, Reports no additional respiratory complaints, Denies cough and Denies dyspnea Gastrointestinal: Gastrointestinal: Reports as per HPI, Reports no additional gastrointestinal complaints, Denies abdominal pain, Denies change in bowel habits, Denies change in stool character, Denies nausea and Denies vomiting Genitourinary: Genitourinary: Reports no additional female genitourinary complaints, Reports as per HPI, Denies abnormal vaginal bleeding, Denies genital lesions, Denies hot flashes, Denies dyspareunia, Denies pelvic pain, Denies sexual dysfunction, Denies urinary incontinence, Denies vaginal discharge, Denies vaginal dryness and Denies vaginal odor Musculoskeletal: Musculoskeletal: Reports no additional musculoskeletal complaints and Reports as per HPI Integumentary/Breasts: Skin/Breast: Reports system reviewed and no additional complaints, except as docu, Reports as per HPI, Denies breast pain and Denies nipple discharge Neurologic: Reports system reviewed and no additional complaints, except as documented, Reports as per HPI, Reports Normal hearing present and Denies headache(s) Psychiatric: Psychiatric: Reports no additional psychiatric complaints, Reports as per HPI, Denies anxiety and Denies depression Endocrine: Endocrine: Reports no additional endocrine complaints and Reports as per HPI Hematologic/Lymphatic: Hematologic/Lymphatic: Reports no additional hematologic/lymphatic complaints and Reports as per HPI Allergic/Immunologic: Allergic/Immunologic: Reports no additional allergic/immunologic complaints and Reports as per HPI PMF Past Medical History Medical History (Updated 06/18/21 @ 12:21 by Miranda Prince MD) Spontaneous X2 03/2016, 12/09/2015 Vaginal delivery 02/20/2017 Surgical History Surgical History H/O dilation and curettage 03/2016 Family History Family History Grandparent Hypertension Cerebrovascular accident Family history of lung cancer, Onset Age: 56 Family history of malignant neoplasm of breast High cholesterol Lung cancer Father Hypertension Family history of type 2 diabetes mellitus Mother Hypertension High cholesterol Social History Social History Smoking status: Never smoker Second hand tobacco smoke exposure: No Alcohol intake: never Substance use: never Spiritual care concerns: No Meds Home Medications and Allergies Home Medications Medication Instructions Recorded Confirmed Type cetirizine 10 mg capsule 10 mg PO DAILY PRN 12/04/20 06/18/21 History pre
--- NOTE | 2021-06-18 12:22 | WPDHPUPDATE1 ---
History and Physical Update Update Date/Time: 06/18/21 12:22 History and Physical has been reviewed, including an updated exam of the patient. There are NO changes in the patient's condition. Risks, benefits, and alternatives have been discussed and questions answered. Patient agrees to proceed with procedure.
[2021-06-18] MEDS: miSOPROStol 200 MCG TABLET 1000 MCG RECTAL (16:27)
[2021-06-18] MEDS: METHYLERGONOVINE MALEATE 0.2 MG/ML VIAL IM (16:30)
[2021-06-18] MEDS: TRANEXAMIC ACID 1,000 MG/10 ML AMPUL 1000 MG IV PUSH (16:40)
--- NOTE | 2021-06-18 17:02 | PM.OBPRVD ---
OB - Delivery Note Procedure Delivery date: 06/18/21 Procedure: The patient is a 30-year-old now who presented to labor and delivery on the morning of 06/18/2021 for scheduled elective induction of labor at 40 weeks 6 days gestation. Patient was admitted to labor and delivery. Initial cervical exam was 1 cm dilated. Induction was started with Pitocin. At 7:54 a.m., artificial rupture membranes was performed. Clear amniotic fluid was noted. Pitocin was continued. Patient became uncomfortable and requested an epidural for pain management which was placed without difficulty. Shortly after epidural placement, patient experienced episodes of hypotension. She received phenylephrine and ephedrine per anesthesia and blood pressure increased. Afterwards, an IUPC was placed for enhanced monitoring. Tachysystole was noted on toco followed by a prolonged deceleration. Pitocin was discontinued and resuscitative measures were performed with adequate recover of tracing. After a short period of rest, pitocin was restarted. Patient continued to make progress and was noted to be fully dilated at 4:12 p.m.. Patient was prepped and draped for delivery. At 4:18 p.m., patient delivered head atraumatically and without difficulty in LUIS FELIPE presentation. Occiput restituted to maternal right side. A tight nuchal cord x1 was noted, however, was unable to be reduced. With subsequent push, the infant's neck, shoulders, and rest of body delivered without difficulty. Nuchal cord was reduced. 's nose and mouth were suctioned with bulb suction. The infant was crying spontaneously. Infant was placed on maternal abdomen where care was assumed by awaiting nursing staff. Delayed cord clamping was performed for approximately 60 seconds. A segment of cord was collected for cord gases. Cord blood was collected. The placenta was delivered spontaneously and intact. On inspection, no lacerations were noted. Uterine fundus was noted to be firm with massage , however, moderate bleeding was noted. Bimanual massage was continued. Cytotec 1000 mcg was administered rectally. Methergine 0.2mg IM was also administered. TXA 1g IV was also given. During this time, bleeding subsided. Estimated blood loss for entire delivery is 450 cc. The infant was a live-born female infant, Apgars 8 and 9, weighing 7 lb 7 oz. Both mother and baby doing well at end of delivery.. Events: Elective Induction of Labor Induction method: Per Pitocin Protocol Delivery augmentation: Rupture of Membranes Delivery monitor: External FHT, External Uterine and Internal Uterine Route of delivery: Laceration Description: None Specimen: Yes (cord blood and cord gases) Quantitative Blood Loss (ml): 450 Anesthesia type: Epidural Disposition: Floor Complications: No immediate complications Baby Date of : 06/18/21 Time of : 16:18 Weeks of gestation at delivery: 40 (40.6) Infant gender: Female Weight (pounds): 7 Weight (ounces): 7 presentation: vertex position: Right Occiput Anterior Placenta delivery description: Spontaneous Cord Vessel Description: 3 Vessels, Nuchal Cord (x1) and Delayed Cord Clamping (x 60s) score one minute: 8 score five minutes: 9 AMG Delivery Billing Delivery Delivery: Delivery Charge
[2021-06-18] MEDS: OXYTOCIN 30 UNITS/NS 500 ML 30 UNITS/500 ML BAG 125 UNITS IV CONT (17:08)
[2021-06-18] MEDS: IBUPROFEN 600 MG TABLET PO (21:18)
[2021-06-18] MEDS: WITCH HAZEL 40 PADS 1 PAD TOPICAL (22:51)
[2021-06-18] MEDS: BENZOCAINE 20% AER SPR (*SP) 56 GM CAN 1 SPRAY TOPICAL (22:51)
[2021-06-19] MEDS: ACETAMINOPHEN 325 MG TABLET 650 MG PO ×2 (01:56→17:34)
[2021-06-19 02:27] LABS: Hematocrit 33.3 % (37.0-47.0); Hemoglobin 11.1 g/dL (12.0-15.0)
[2021-06-19 06:30] LABS: Rapid Plasma Reagin Non-Reactive (NonReactive)
[2021-06-19 07:30] VITALS: BP 108/51; PULSE 79; RESP 18; TEMP 36.7; O2SAT 98
[2021-06-19 08:30] VITALS: PULSE 79; RESP 18; O2SAT 98
--- NOTE | 2021-06-19 08:30 | PC.NURSE ---
PT introductions made and plan of care discussed per post , pain management, breast feeding, daily care activities and pending discharge to home. PT and spouse both received instructions per one to one discussion, mom baby care guide and demonstrations. NO barriers to learning identified. PT verbalized understanding of such care.
[2021-06-19] MEDS: IBUPROFEN 600 MG TABLET PO ×2 (08:37→17:35)
[2021-06-19] MEDS: DOCUSATE SODIUM 100 MG CAPSULE PO ×2 (08:37→17:35)
[2021-06-19] MEDS: MULTIVIT/MIN/PREN/FOL AC/IRON TABLET 1 TAB PO (08:37)
--- NOTE | 2021-06-19 08:44 | WPDANLDPN2 ---
Anes-Prog Note L&D Date/Time: 06/19/21 08:44 Comfortable throughout: labor and delivery Neuraxial method: epidural Epidural/Spinal procedure site: clean & non-tender Neuro status: Neuro function grossly intact. Cardiovascular status: normal Respiratory status: normal Airway patency: baseline Mental status: baseline Post-Op hydration status: normal Vital Signs: Last Vital Signs Temp 36.7 C 06/18/21 20:23 Pulse 96 06/18/21 20:23 Resp 16 06/18/21 20:23 BP 104/59 L 06/18/21 20:23 Pulse Ox 100 06/18/21 16:17 Pain score (VAS): 0 I/O: Intake & Output 06/18/21 06/19/21 06/19/21 23:59 07:59 15:59 Intake Total 500 Output Total 450 Balance 50 Post-procedural complaints: none Patient feedback: Patient satisfied with anesthetic care.
--- NOTE | 2021-06-19 09:28 | PM.OBPNVD ---
OB - PN: Subj Subjective Date/time seen: 06/19/21 09:28 Patient doing well. Reports occasional cramping, well controlled with medication. Denies any headache, chest pain, shortness of breath, nausea, or vomiting. Scant lochia. Ambulating without difficulty. Voiding well. OB - PN: Obj Data Labs CBC & Chem 7: 06/19/21 02:01 Labs: Laboratory Results - last 24 hr 06/18/21 06/19/21 05:28 02:01 Hgb 11.1 L Hct 33.3 L RPR Non-reactive OB - PN A/P Assessment and Plan (1) Normal spontaneous vaginal delivery: Code(s): O80 - Encounter for full-term uncomplicated delivery Status: Acute Assessment and Plan: PPD#1 doing well continue routine care anticipate dc home tomorrow Time Spent With Patient Time: Total time spent is greater than 50% in coordination of care (as documented) at patient's floor/unit and/or counseling patient: Exam Const: General: cooperative, healthy appearing, comfortable and no acute distress GI: Inspection: non-distended GI Palp: Yes Soft to palpation and No Tenderness to palpation present (GI) Other: fundus firm below umbilicus Extrem: Right lower extremity: no edema Left lower extremity: no edema Other: no calf tenderness
[2021-06-19 11:51] VITALS: BP 103/62; PULSE 82; RESP 18; TEMP 36.3; O2SAT 98
--- NOTE | 2021-06-19 12:33 | PM.OBPNVD ---
OB - PN: Subj Subjective Date/time seen: 06/19/21 12:33 Notified by RN that patient requesting PPD#1 discharge pending clearance, which is reasonable. Patient otherwise stable. Emergency precautions reviewed. OB - PN: Obj Data Labs CBC & Chem 7: 06/19/21 02:01 Labs: Laboratory Results - last 24 hr 06/18/21 06/19/21 05:28 02:01 Hgb 11.1 L Hct 33.3 L RPR Non-reactive OB - PN A/P Time Spent With Patient Time: Total time spent is greater than 50% in coordination of care (as documented) at patient's floor/unit and/or counseling patient:
--- NOTE | 2021-06-19 12:33 | PM.OBDSVD ---
DS: Admitting Diagnosis Discharge Date 06/19/21 Admitting Diagnosis IUP at 40w6d Elective induction of labor OB - DS: Summary OB Procedures : None OB Procedures Intrapartum: Spontaneous Vag Delivery OB Procedures: : None Time Spent with Patient Time attestation: Total time spent providing and/or coordinating discharge services: DS: Data Data Completed and Pending Labs on day of discharge: Labs from last 24 hours 06/19/21 06/18/21 02:01 05:28 Hgb 11.1 L Hct 33.3 L RPR Non-reactive Discharge Plan Discharge Attending physician on discharge: Miranda Prince Discharging Clinician: Miranda Prince Anticipated Discharge Date/Time: 06/19/21 16:30 Patient Disposition: Home, Self-Care Activity: as tolerated and pelvic rest Diet: regular Discharge Instructions: Call office ([phone]) to schedule a visit in 4-6 weeks. You may take Ibuprofen 600mg every 6 hours as needed for pain. Pain medication may make you constipated. It may be helpful to take an iiop-qfr-[id number] stool softener, such as Colace and/or Senokot, along with the pain medication to help lessen constipation. Call office or go to ED for pain not controlled with medication, headache, chest pain, shortness of breath, fever, chills, persistent nausea or vomiting, severe abdominal pain, heavy vaginal bleeding >2 pads/hour, foul vaginal discharge or odor, or problems with your breasts. Patient Instructions: Antibiotic Form Stand Alone Forms: General Discharge Information Follow-up/Referrals: Miranda Prince MD [Physician] - Discharge Medications: Continued Zyrtec 10 mg capsule 10 mg PO DAILY PRN (Reason: Allergy Symptoms) RF: 0 #2 Tablet 1 tablet PO HS RF: 0 Date of admission: 06/18/21 05:08 Primary Care Provider: Mele Dsouza Admitting Provider: Miranda Prince Attending physician on admission: Miranda Prince Condition: Stable
--- NOTE | 2021-06-19 17:30 | PC.NURSE ---
PT received discharge instructions per protocol and verbalized understanding of such care.
[2021-06-19] MEDS: MEASLES,MUMPS,RUBELLA VACCINE 0.5 ML VIAL SUB-Q (17:32)
--- NOTE | 2021-06-19 18:05 | PC.NURSE ---
PT discharged to home ambulatory accompanied by spouse and and taken to waiting car. Follow up appts confirmed
[2021-06-22 11:12] VITALS: BP 116/72; PULSE 78; RESP 20; TEMP 36.7; O2SAT 100
== END 2021-06-19 18:05 | disposition home or self-care (01) | DRG 807 ==
LOC: ANHLDR 05:11 → ANHOB2 20:07
PROVIDERS: Admitting Provider Student in an Organized Health Care Education/Training Program; PCP Internal Medicine; Visit Provider Student in an Organized Health Care Education/Training Program
DX: O69.81X0 Labor and delivery complicated by cord around neck, without compression, not applicable or unspecified (principal); Z37.0 Single live birth; Z3A.40 40 weeks gestation of pregnancy; O36.8330 Maternal care for abnormalities of the fetal heart rate or rhythm, third trimester, not applicable or unspecified
CPT/HCPCS: 36415; 85014; 85018; 85025; 86592; 86850; 86900; 86901; 90710; A9270; J2210; J2370; J2590; J2795; J7120

== ENCOUNTER 2022-01-25 08:24 | Emergency (ER) | payer BC, SELFPAY ==
--- NOTE | 2022-01-25 08:34 | ED.URI ---
HPI - URI/Sore Throat General Chief Complaint: Upper Respiratory Infection Stated Complaint: fever, bodyache, congestion, cough Time Seen by Provider: 01/25/22 09:07 Source: patient and RN notes reviewed Mode of arrival: ambulatory Limitations: no limitations History of Present Illness HPI Narrative: 31-year-old female is breast-feeding presents with concern for fever, body aches chest congestion reports started Tuesday. She reports a feeling of tightness in her chest with coughing. She has not taken any gegl-muh-uscntsx medications because she is . She denies shortness of breath. MD elicited complaint: cough and nasal congestion Related Data Allergies Allergy/AdvReac Type Severity Reaction Status Date / Time No Known Allergies Allergy Unknown Verified 01/25/22 08:52 Review of Systems Review of Systems: CONSTITUTIONAL: Reports malaise, fever. EYES: Denies visual changes, redness, or discharge. ENT: Reports rhinorrhea, congestion. Denies sinus pain, otalgia and sore throat. CARDIOVASCULAR: Denies chest pain, palpitations, or edema. RESPIRATORY: Reports cough and chest congestion. Denies dyspnea. GASTROINTESTINAL: Denies abdominal pain, nausea, vomiting, diarrhea SKIN: Denies rash or itching. MUSCULOSKELETAL: Reports myalgia. NEUROLOGIC: Denies headache. All systems reviewed & are unremarkable except as noted in HPI and below PMFSH Past Medical History Medical History (Updated 01/25/22 @ 09:25 by Gladis Olmos NP) Spontaneous X2 03/2016, 12/09/2015 Vaginal delivery 02/20/2017 Surgical History Surgical History H/O dilation and curettage 03/2016 Family History Family History Grandparent Hypertension Cerebrovascular accident Family history of lung cancer, Onset Age: 56 Family history of malignant neoplasm of breast High cholesterol Lung cancer Father Hypertension Family history of type 2 diabetes mellitus Mother Hypertension High cholesterol Social History Social History Smoking status: Never smoker Second hand tobacco smoke exposure: No Alcohol intake: never Substance use: never Spiritual care concerns: No Comments At time of signature, agree with nursing past medical, surgical, social and family history. There is no relevant family history pertinent to the presenting complaint Exam Narrative: GENERAL: Nontoxic-appearing and in no acute distress. HEAD: Normocephalic EYES: PERRLA, conjunctivae clear ENT: Nares clear, turbinates edematous and erythematous, clear discharge. Mucous membranes moist. TM pearly urbano with dull light reflex bilaterally; no tragal tenderness. Oropharynx not erythematous without lesions. Tonsils not enlarged and without exudate, no drooling, no hoarseness, no trismus, uvula midline. NECK: Supple. No lymphadenopathy CHEST: Scattered wheezes, otherwise Clear to auscultation, breath sounds equal. No rhonchi, rales, or stridor. No respiratory distress, speaks in full sentences. HEART: Regular rate and rhythm. No murmur heard. SKIN: Warm, dry, no rash. NEURO: Alert and oriented x3. PSYCH: Normal mood and affect Course Course Emergency Course: Patient is aware of diagnosis, understands and agrees to treatment plan. Anticipatory guidance given. Patient agrees to follow-up as directed and is aware of reasons to seek care at the emergency department. Portions of this record may have been created with voice recognition software Level of Care: Express Care Visit Vital Signs Vital signs: Vital Signs Temperature 98.3 F 01/25/22 08:43 Pulse Rate 110 H 01/25/22 08:43 Respiratory Rate 16 01/25/22 08:43 Blood Pressure 102/68 01/25/22 08:43 Pulse Oximetry 100 01/25/22 08:43 Temperature 98.3 F 01/25/22 08:43 Pulse Rate 110 H 01/25/22 08:43 R
[2022-01-25 08:43] VITALS: BP 102/68; PULSE 110; RESP 16; TEMP 36.8; O2SAT 100
== END 2022-01-25 09:30 | disposition home or self-care (01) ==
PROVIDERS: Emergency Provider Nurse Practitioner
DX: J10.1 Influenza due to other identified influenza virus with other respiratory manifestations (principal); R06.2 Wheezing; Z20.822 Contact with and (suspected) exposure to COVID-19
CPT/HCPCS: 87426; 87804; 99213; C9803; G0463

== ENCOUNTER 2022-02-05 16:05 | Emergency (ER) | payer BC, SELFPAY ==
--- NOTE | ~2022-02-05 | XR_ITS ---
EXAMINATION: XR chest 2V DATE: 02/05/2022 17:00 INDICATION: Chest pain and cough. TECHNIQUE: Frontal and lateral views of the chest were obtained. COMPARISON: None. FINDINGS: Calcified right lung nodules and calcified right hilar lymph nodes are consistent with old granulomatous disease. No pleural effusion or pneumothorax. The heart size is normal. IMPRESSION: 1. No acute cardiopulmonary disease. Reviewed, dictated and finalized at location A. TY TRADER
[2022-02-05 16:13] VITALS: BP 109/72; PULSE 90; RESP 16; TEMP 36.6; O2SAT 100
--- NOTE | 2022-02-05 16:58 | ED.URI ---
HPI - URI/Sore Throat General Chief Complaint: Upper Respiratory Infection Stated Complaint: cough,shortness of breath, chest pain Time Seen by Provider: 02/05/22 16:40 Source: patient, RN notes reviewed and old records reviewed Mode of arrival: ambulatory Limitations: no limitations History of Present Illness HPI Narrative: 31 year old female presents to [facility] care with complaints 3 weeks ago diagnosed with influenza still continuing to have cough with some discomfort from of her neck to lower rib area with deep breathing and cough. Patient reports that she has used her inhaler, has expectorated some greenish sputum, is taking Tylenol for her discomfort.Patient is presently breast feeding concerned what to take that would be safe OTC for her cough. MD elicited complaint: cough ( persistent) and other ( pain with deep breathing, pain with cough) Pertinent past history: other ( recent influenza) Related Data Allergies Allergy/AdvReac Type Severity Reaction Status Date / Time No Known Allergies Allergy Unknown Verified 01/25/22 08:52 Review of Systems Review of Systems: CONSTITUTIONAL: Denies fever, chills, or sweats. EYES: Denies visual changes, redness, or discharge. ENT: Reports some rhinorrhea, congestion, no sore throat, or otalgia. CARDIOVASCULAR: Denies chest pain, palpitations, or edema. RESPIRATORY: reports cough no acute dyspnea, pain from left neck down to rib area with deep breathing post influenza. GASTROINTESTINAL: Denies abdominal pain, nausea, vomiting, or diarrhea. GENITOURINARY: Denies dysuria or hematuria. SKIN: Denies rash or itching. MUSCULOSKELETAL: Denies back pain, joint pain, or myalgia. NEUROLOGIC: Denies headache, numbness, or weakness. PSYCHIATRIC: Denies anxiety or depression. All systems reviewed & are unremarkable except as noted in HPI and below PMFSH Past Medical History Medical History Spontaneous X2 03/2016, 12/09/2015 Vaginal delivery 02/20/2017 Surgical History Surgical History H/O dilation and curettage 03/2016 Family History Family History Grandparent Hypertension Cerebrovascular accident Family history of lung cancer, Onset Age: 56 Family history of malignant neoplasm of breast High cholesterol Lung cancer Father Hypertension Family history of type 2 diabetes mellitus Mother Hypertension High cholesterol Social History Social History Smoking status: Never smoker Second hand tobacco smoke exposure: No Alcohol intake: never Substance use: never Spiritual care concerns: No Comments At time of signature, agree with nursing past medical, surgical, social and family history. There is no relevant family history pertinent to the presenting complaint Exam Narrative: GENERAL: Well-appearing, well-nourished, and in no acute distress. HEAD: Normocephalic, atraumatic. EYES: PERRLA and EOMI. ENT: Nares clear, no rhinorrhea or epistaxis. Mucous membranes moist.TM's normal with good light reflex, throat pink with no lesions or exudates NECK: Supple.no lymphadenopathy CHEST: Clear to auscultation. No respiratory distress.no wheezing or any respiratory difficulty noted, SAO2 100% on room air, no acute cough noted. HEART: Regular rate and rhythm. No murmur heard. Normal peripheral pulses. ABDOMEN: Soft, nontender, nondistended, normal active bowel sounds. EXTREMITIES: Normal range of motion. No edema. SKIN: Warm, dry, no rash. NEURO: No focal deficits. Alert and oriented x3. Course Course Level of Care: Express Care Visit Vital Signs Vital signs: Vital Signs Temperature 36.6 C 02/05/22 16:13 Pulse Rate 90 02/05/22 16:13 Respiratory Rate 16 02/05/22 16:13 Blood Pressure 109/72 02/05/22 16:13 Pulse Oximetry 100
== END 2022-02-05 17:32 | disposition home or self-care (01) ==
PROVIDERS: Emergency Provider Registered Nurse; PCP Internal Medicine
DX: R05.3 Chronic cough (principal)
CPT/HCPCS: 71046; 99213; G0463

== ENCOUNTER 2022-12-06 09:49 | Outpatient (CLI) | payer BC, SELFPAY ==
[2022-12-06 10:47] LABS: T4 Thyroxine 7.72 ug/dL (5.53-11.0)
[2022-12-06 11:00] LABS: Thyroid Stimulating Hormone 0.951 uIU/mL (0.465-4.680)
== END 2022-12-06 09:50 | disposition home or self-care (01) ==
PROVIDERS: PCP Internal Medicine; Visit Provider Obstetrics & Gynecology
DX: E04.9 Nontoxic goiter, unspecified (principal)
CPT/HCPCS: 36415; 84436; 84443

== ENCOUNTER → 2022-12-08 12:42 | Outpatient (CLI) | payer BC, SELFPAY ==
--- NOTE | ~2022-12-08 | US_ITS ---
EXAMINATION: US pelvic complete w TV DATE: 12/08/2022 13:34 INDICATION: Pelvic fullness and pain Comparison:No prior studies for comparison. TECHNIQUE: Multiple transabdominal and endovaginal sonographic images of the pelvis performed. FINDINGS: The uterus measures 7.6 x 4.9 x 3.5 cm. The endometrial complex measures 5 mm. The right ovary measures 3.3 x 1.9 x 2.8 cm and the left ovary measures 2.8 x 2.4 x 2.6 cm. There ar e small follicles in each ovary. Normal doppler signal in both ovaries. There is no free fluid in the pelvis. There are no abnormal masses seen on either side. IMPRESSION: 1. Unremarkable pelvic ultrasound. Reviewed, dictated and finalized at location B.
== END ==
PROVIDERS: PCP Obstetrics & Gynecology; Visit Provider Obstetrics & Gynecology
DX: R19.00 Intra-abdominal and pelvic swelling, mass and lump, unspecified site (principal)
CPT/HCPCS: 76830; 76856

== ENCOUNTER 2023-12-27 18:17 | Emergency (ER) | payer BC, SELFPAY ==
--- NOTE | 2023-12-27 18:20 | ED.URI ---
HPI - URI/Sore Throat General Chief Complaint: Upper Respiratory Infection Stated Complaint: sore throat Time Seen by Provider: 12/27/23 18:20 Source: patient Mode of arrival: ambulatory Limitations: no limitations History of Present Illness HPI Narrative: Nae is a 31-year-old female patient presenting to the clinic today with complaints of a sore throat x2 days. She reports just overall does not feel well. Denies any runny nose, cough, congestion, fever, chills, or body aches. MD elicited complaint: sore throat Related Data Home Medications Medication Instructions Recorded Confirmed No Home Medications 12/20/23 12/27/23 Allergies Allergy/AdvReac Type Severity Reaction Status Date / Time No Known Allergies Allergy Unknown Verified 12/27/23 18:20 Review of Systems Review of Systems: Pertinent positives per HPI. Patient denies any fever, chills, rash, headache, visual changes, dizziness, cough, shortness of breath, chest pain, palpitations, nausea, vomiting, diarrhea, constipation, abdominal pain, or any urinary issues. [facility] Past Medical History Medical History (Updated 12/27/23 @ 18:37 by Chito Harrington APRN) Spontaneous X2 03/2016, 12/09/2015 Vaginal delivery 02/20/2017 Surgical History Surgical History H/O dilation and curettage 03/2016 Family History Family History Grandparent Hypertension Cerebrovascular accident Family history of lung cancer, Onset Age: 56 Family history of malignant neoplasm of breast High cholesterol Lung cancer Father Hypertension Family history of type 2 diabetes mellitus Mother Hypertension High cholesterol Social History Social History Smoking status: Never smoker Second hand tobacco smoke exposure: No Alcohol intake: never Substance use: never Lack of Transportation: No Lack of Food: Never True Current Housing: I Have Housing Concerned About Future Housing: No Difficulty Paying Gas/Electric Bills: No Difficulty Paying for Meds: No Currently Unemployed: No Living arrangements: with family Gender identity (if verbalized by the patient): Female Spiritual care concerns: No Comments At the time of my signature, I reviewed and agree with the nursing past medical, surgical, social, and family history. There is no relevant family history pertinent to the patient complaint. Exam Narrative: General: Well-developed, well nourished, in no apparent distress Head: Normocephalic, atraumatic Eyes: Pupils equally round and reactive to light bilaterally, EOM intact, sclera and conjunctive clear, no discharge, lids normal Ears: TMs intact and clear, ear canals clear, no drainage, grossly hearing normal. Nose: Nares patent, no discharge, no inflammation, no sinus tenderness. Mouth: Oral pharynx mildly red without lesions or masses, good dentition, MMM. Neck: Supple, trachea midline, no enlargement of anterior or posterior cervical nodes, no thyroid masses or goiter palpable. Cardio: Regular rate and rhythm, s1 and s2 normal, no murmur appreciated. Resp: Clear to auscultation bilaterally, no rhonchi, rales, wheezing or rubs Course Course Emergency Course: Portions of this record may have been created with voice recognition software. Level of Care: Express Care Visit Vital Signs Vital signs: Vital signs reviewed MDM - URI/Sore Throat MDM Narrative Medical decision making narrative: At the time of visit patient is resting comfortably on the exam table. Patient appears to be nontoxic. Labs: Strep test was negative in the clinic today. We will send strep for culture. Plan: I suspect patient has viral pharyngitis. Supportive measures were discussed with the patient and they voiced understanding discharge instructions and agrees to treatment plan. Return precautions reviewed Differential Diagnosis Differential diagnosis: Likely upper respiratory infection, otitis media, sinusitis, viral infection, bronchitis, influenza, pharyngitis and other (COVID) Discharge Plan Discharge Clinical Impression: Pharyngitis, acute Qualifiers: Pharyngitis/tonsillitis etiology: unspecified etiology Qualified Code(s): J02.9 - Acute pharyngitis, unspecified Patient Disposition: Home, Self-Care Condition: Stable Instructions: Antibiotic Form, Pharyngitis (ED) Additional Instructions: Strep test was negative in the clinic today. We will send for culture. Increase fluids and stay well hydrated Tylenol/motrin for pain/fever Flonase and OTC antihistamines as directed Vicks vapor rub to open sinuses Sinus rinses for congestion Cepacol spray, cough drops, throat lozenges, warm tea with honey/lemon, gargle salt water to soothe throat BRAT diet for diarrhea Clear liquids x 24 hours then advance as tolerated for nausea/vomiting Go to the ED if you develop a worsening in your condition- high fever not controlled by Tylenol or Motrin, dehydration, weakness, lethargy, shortness of breath, or chest pain. Follow up with your PCP in 3-5 days if symptoms persist. Prescriptions: No Action No Home Medications Follow-up/Referrals: Mele Dsouza MD [Primary Care Provider] - Time of Disposition: 18:37 Quality NIHSS Nursing Documentation ED NIHSS nursing documentation: reviewed/agree
[2023-12-27 18:28] VITALS: BP 112/56; PULSE 71; RESP 20; TEMP 36.5; O2SAT 99
[2023-12-27 18:36] LABS: EDSTREPNEGPOS1 Negative (Negative)
== END 2023-12-27 18:40 | disposition home or self-care (01) ==
PROVIDERS: Emergency Provider Nurse Practitioner Family; PCP Internal Medicine
DX: J02.9 Acute pharyngitis, unspecified (principal)
CPT/HCPCS: 87081; 87880; 99213; G0463

== ENCOUNTER 2024-09-24 01:07 | Day surgery (SDC) | payer BC, SELFPAY ==
[2024-09-11 09:40] VITALS: BMI 25.0
--- OUTSIDE RECORDS SUMMARY | 2024-09-24 01:09 | XMS_ITS | Clinical Summary ---
Author Organization [employer] [facility] [address] [facility] [address] [place] [address] Phone Care Team Providers Care Administrative Staff Supervisor Name Role Phone Mele Dsouza MD Primary Care Provider [phone] Social History Tobacco Use Types Packs/Day Years Used Date Smoking Tobacco: Never Assessed Comments Unknown Sex and Gender Information Value Date Recorded Sex Assigned at Not on file Legal Sex Female 3:50 PM [employer] Gender Identity Not on file Sexual Orientation Not on file Plan of Treatment Health Maintenance Due Date Last Done Comments HPV VACCINES (1 - 3-dose series) 2004 DTAP/TDAP/TD VACCINES (1 - Tdap) 2008 HEPATITIS B VACCINES (1 of 3 - 19+ 3-dose series) 07/09 HPV/Cotest (21-29) 2010 CERVICAL CANCER SCREENING 07/31/2019 HPV/Cotest (30-65) 07/31/2019 PAP SMEAR 07/31/2019 INFLUENZA VACCINE (#1) 2024 Insurance [facility] OPT[employer] PPO [id number] Care Teams Administrative Staff Supervisor Relationship Specialty Start Date End Date Mele Dsouza MD [address] [place] [id number] PCP - General Internal Medicine 02/12/16
--- OUTSIDE RECORDS SUMMARY | 2024-09-24 01:09 | XMS_ITS | Clinical Summary ---
Author Organization [facility] Address [address] [place] [id number] Care Team Providers Care Expressive Music Therapist Name Role Phone Unavailable Primary Care Provider Unavailabl e Social History Tobacco Use Types Packs/Day Years Used Date Smoking Tobacco: Never Assessed Comments Unknown Sex and Gender Information Value Date Recorded Sex Assigned at Not on file Legal Sex Female 6:29 PM CDT Gender Identity Not on file Sexual Orientation Not on file Plan of Treatment Health Maintenance Due Date Last Done Comments Cervical Cancer Screening Pa p Smear (Age 30 to 64) Every 3 Years 1989 Annual Physical 1992 Hepatitis C 07/31/2007 DTaP, Tdap and Td Vaccines ( 1 - Tdap) 2008 Hepatitis B Vaccines (1 of 3 - 19+ 3-dose series) 2008 HPV Vaccines (1 - 3-dose SCD M series) 2016 Cervical Cancer Screening Pa p with HPV Testing (Age 30 to 64) Every 5 Years 07/31/2019 Cervical Cancer Screening with HPV 07/31/2019 COVID-19 Vaccine (2023-2 5 season) 2023 Meningococcal B Vaccine Aged Out No l onger eligible based on patient's age to complete this topic Meningococcal Vaccine Aged Out No ankita flakito eligible based on patient's age to complete this topic Pneumococcal Vaccine: Pediat rics (0 to 5 Years) and At-Risk Patients (6 to 49 Years) Aged Out No longer eligible b ased on patient's age to complete this topic RSV Immunizations Under 20 Months Aged Out No longer eligible based on patient's age to complete this topic
--- OUTSIDE RECORDS SUMMARY | 2024-09-24 01:09 | XMS_ITS | Continuity of Care Document ---
Author Organization [facility] Address [address] [place] [address] Phone Care Team Providers Care Online Publisher Name Role Phone Unavailable Unavailable Unavailable Advance Directives Directive Yes / No Effective Date File Name No Information Encounters Encounter Description Practice Location Reason(s) For Visit Diagnoses Date Provider Providers Copied on Encounter [facility], [address] [facility], [place], [place], [id number], tel:[phone] [facility] No Information No Information Referring Provider: CARLY NASCIMENTO, [address] [place] [address],[place], [address]. tel:[phone] Family History Family Member Type Diagnosis Age At Onset No Information Payers Payer name Insurance type Covered libertarian ID Authoriza tishanelle(s) [facility] POS [id number] Social History Type Description Quantity Date Captured Comments Sex Female Smoking Status No Information Chief Complaint And Reason For Visit No Information History Of Present Illness Encounter Date Complaint History Of Prese nt Illness No Information Instructions Date Instruction Additional Infor mation No Information Assessments Type Assessment Date No Information
[2024-09-24 12:50] VITALS: BP 105/67; PULSE 70; RESP 16; TEMP 36.6; O2SAT 100
--- NOTE | 2024-09-24 12:54 | P.PNAN_ITS ---
Anes - Initial Pre Proc Eval Procedure: Operation Date: 09/24/24 14:00 Proposed Procedures p Diagnostic Colonoscopy - Yang Guardado MD Date/Time: 09/24/24 12:54 Surgeon: Yang Guardado MD Pre Op Diagnosis: Other specified diseases of anus and rectum Patient Data Age: 34 Gender: F Height: 1.65 m Weight: 67.4 kg Last Vital Signs Temp 36.6 C 09/24/24 12:50 Pulse 70 09/24/24 12:50 Resp 16 09/24/24 12:50 BP 105/67 09/24/24 12:50 Pulse Ox 100 09/24/24 12:50 O2 Del Method Room Air 09/24/24 12:50 Allergies Allergy/AdvReac Type Severity Reaction Status Date / Time No Known Allergies Allergy Unknown Verified 09/24/24 12:49 Home Medications ?Medication ?Instructions ?Recorded ?Confirmed ?Type No Home Medications 12/20/23 09/11/24 History Patient hx anesthesia problems: none Family hx anesthesia problems: none Results Review: All pre-operative results and documents have been reviewed as part of the pre- operative evaluation. [facility] Past Medical History Medical History Elevated AST (SGOT) Lower abdominal pain Rectal pain Chronic constipation Vaginal delivery 02/20/2017 Spontaneous X2 03/2016, 12/09/2015 Surgical History Surgical History H/O dilation and curettage 03/2016 Family History Family History Grandparent Hypertension Cerebrovascular accident Family history of lung cancer, Onset Age: 56 Family history of malignant neoplasm of breast High cholesterol Lung cancer Father Hypertension Family history of type 2 diabetes mellitus Mother Hypertension High cholesterol Social History Social History Smoking status: Never smoker Second hand tobacco smoke exposure: No Alcohol intake: never Substance use: never Substance use type: does not use Lack of Transportation: No Lack of Food: Never True Current Housing: I Have Housing Concerned About Future Housing: No Difficulty Paying Gas/Electric Bills: No Difficulty Paying for Meds: No Currently Unemployed: No Living arrangements: with family Gender identity (if verbalized by the patient): Female Spiritual care concerns: No Anes - Eval Final PreProcedure Day of Procedure 09/24/24 12:54 Patient weight: normal Heart: regular rate and rhythm Lungs: clear to auscultation Airway: Mallampati scale class 1 Neurological: alert and oriented Last oral intake: >/= 8 hours ASA classification: I Emergent: no Anesthetic plan: proceed Anesthesia type and monitoring: general GIVS and standard monitoring Results Review: All pre-operative results and documents have been reviewed as part of the pre- operative evaluation. Informed Consent: The patient's anesthetic plan and its attendant risks and benefits were discussed with the patient/family/POA. Questions were solicited and answers provided to the satisfaction of the patient/family/POA.
[2024-09-24 12:56] LABS: BEDSIDEPREGUCG Negative (Negative)
[2024-09-24] MEDS: LACTATED RINGERS 1,000 ML 150 ML IV CONT (13:01)
--- NOTE | 2024-09-24 13:48 | PM.HPGS ---
History of Present Illness History of Present Illness Consent: Risks, benefits, and alternatives have been discussed and questions answered. Patient agrees to proceed with procedure. Chief complaint: Other specified diseases of anus and rectum Narrative: Nae Szymanski is a 34 year old female here for first colonoscopy because history of constipation Review of Systems Review of Systems: All systems reviewed & are unremarkable except as noted in HPI and below PMFSH Past Medical History Medical History Elevated AST (SGOT) Lower abdominal pain Rectal pain Chronic constipation Vaginal delivery 02/20/2017 Spontaneous X2 03/2016, 12/09/2015 Surgical History Surgical History H/O dilation and curettage 03/2016 Family History Family History Grandparent Hypertension Cerebrovascular accident Family history of lung cancer, Onset Age: 56 Family history of malignant neoplasm of breast High cholesterol Lung cancer Father Hypertension Family history of type 2 diabetes mellitus Mother Hypertension High cholesterol Social History Social History Smoking status: Never smoker Second hand tobacco smoke exposure: No Alcohol intake: never Substance use: never Substance use type: does not use Lack of Transportation: No Lack of Food: Never True Current Housing: I Have Housing Concerned About Future Housing: No Difficulty Paying Gas/Electric Bills: No Difficulty Paying for Meds: No Currently Unemployed: No Living arrangements: with family Gender identity (if verbalized by the patient): Female Spiritual care concerns: No Meds Home Medications and Allergies Home Medications ?Medication ?Instructions ?Recorded ?Confirmed ?Type No Home Medications 12/20/23 09/11/24 History Allergies Allergy/AdvReac Type Severity Reaction Status Date / Time No Known Allergies Allergy Unknown Verified 09/24/24 12:49 Vital Signs Vital Signs - 24 hr 09/24/24 12:50 Temperature 98 F Pulse Rate 70 Respiratory Rate 16 Blood Pressure 105/67 Pulse Oximetry 100 Oxygen Delivery Room Air Exam Const: General: comfortable and no acute distress HENMT: Face/Nose/Sinus: Normal nares present Eyes: General: appearance normal, both eyes and all related structures Neck: Neck: no JVD Resp: Auscultation: clear to auscultation bilaterally Cardio: Rate: regular rate Rhythm: regular rhythm GI: Inspection: non-distended GI Palp: Yes Soft to palpation Skin: General skin exam: normal color Neuro: General: gait normal Speech: normal speech Extrem: General: normal to inspection Psych: Mental Status: mental status grossly normal Assessment and Plan Assessment and plan (1) Chronic constipation: Code(s): K59.09 - Other constipation Status: Acute Assessment and Plan: colonoscopy
--- NOTE | 2024-09-24 14:08 | S_PTH ---
PATIENT: Nae Szymanski LOC: [facility] Malhotra#:[id number] AGE/SX: 34/F ROOM: RE09/24/[address]: Yang Guardado MD : 1990 BED: DIS: 09/24/2024 SPEC #: [id number] RECD: 09/25/24 08:07 STATUS: NADIA REQ #: [id number] JAVIER: 09/24/24 14:[address]: Yang Guardado DEPT: [facility] Surgical RECD BY: Cielo Johnson ENTERED: 09/25/24 08:07 SP TYPE: Surgical OTHR DR: Mele Dsouza MD Tissues: A - Colon Polypectomy Procedures: Hematoxylin and Eosin Stain Gross and Microscopic Level 4
[2024-09-24 14:10] VITALS: BP 85/52; PULSE 69; RESP 16; O2SAT 100
[2024-09-24 14:20] VITALS: BP 93/54; PULSE 62; RESP 16; O2SAT 97
[2024-09-24 14:26] VITALS: BP 92/47; PULSE 60; RESP 16; O2SAT 100
== END 2024-09-24 14:40 | disposition home or self-care (01) ==
PROVIDERS: Anesthesiology; PCP Internal Medicine; Referring Provider Nurse Practitioner Family; Visit Provider Internal Medicine Gastroenterology
PROC: 0DJD8ZZ Inspection of Lower Intestinal Tract, Via Natural or Artificial Opening Endoscopic (ICD-10-PCS; CPT 45378; principal; 2024-09-24 14:00)
DX: K59.09 Other constipation (principal); D12.4 Benign neoplasm of descending colon; K64.8 Other hemorrhoids; Z98.890 Other specified postprocedural states; Z80.1 Family history of malignant neoplasm of trachea, bronchus and lung; Z80.3 Family history of malignant neoplasm of breast
CPT/HCPCS: 45385; 88305; J2704; J7120

== ENCOUNTER 2025-01-15 11:13 | Outpatient (CLI) | payer BC, SELFPAY ==
[2025-01-15 12:18] LABS: Beta HCG Quantitative < 2.39 mIU/ML
[2025-01-15 12:32] LABS: Thyroid Stimulating Hormone Reflex 1.210 uIU/mL (0.465-4.68)
[2025-01-16 07:09] LABS: FSH 3.4 mIU/mL (.); LH 5.8 mIU/mL (.)
== END 2025-01-15 11:14 | disposition home or self-care (01) ==
LOC: ANHLAB 11:16
PROVIDERS: PCP Internal Medicine; Visit Provider Obstetrics & Gynecology
DX: N92.6 Irregular menstruation, unspecified (principal)
CPT/HCPCS: 36415; 83001; 83002; 84144; 84443; 84702